=== PATIENT | female | born 1975 | race Two or more races ===

== ENCOUNTER → 2017-02-19 | Outpatient (CLI) | payer MEDICAID ==
[2017-02-19 09:00] LABS: Basophils # (auto) 0 uL; Basophils % (auto) 0.2 % (0.0-2.0); Eosinophils # (auto) 0 uL; Eosinophils % (auto) 0.3 % (0.0-7.0); Hematocrit 37.7 % (36.0-46.0); Hemoglobin 12.8 g/dL (12.2-16.2); Lymphocytes # (auto) 1.9 uL; Lymphocytes % (auto) 14.8 % (10.0-50.0); Mean Corpuscular Hemoglobin 29.5 pg (28.0-32.0); Mean Corpuscular Volume 86.8 fL (80.0-100.0); Mean Platelet Volume 10.9 fL (7.4-10.4); Monocytes # (auto) 0.6 uL; Monocytes % (auto) 4.8 % (0.0-12.0); Neutrophils # (auto) 10.1 uL; Neutrophils % (auto) 79.9 % (37.0-80.0); Platelet Count (auto) 206 10^3/uL (140-450); Red Cell Distribution Width 14.4 % (11.6-16.0); SUSPECT VIEW TRANSMISSION; White Blood Cell 12.6 10^3/uL (4.4-10.8)
== END | disposition home or self-care (01) ==
LOC: LAB 08:16
PROVIDERS: ATTEND Specialist
DX: O99.810 Abnormal glucose complicating pregnancy (principal); Z34.80 Encounter for supervision of other normal pregnancy, unspecified trimester
CPT/HCPCS: 36415; 82951; 83036; 85025

== ENCOUNTER → 2017-02-28 | Outpatient (CLI) | payer MEDICAID | END | disposition home or self-care (01) | LOC: LAB 07:18 | PROVIDERS: ATTEND Specialist | DX: Z34.80 Encounter for supervision of other normal pregnancy, unspecified trimester (principal); R73.09 Other abnormal glucose | CPT/HCPCS: 82951; 82952 ==

== ENCOUNTER → 2017-04-16 | Outpatient (CLI) | payer MEDICAID ==
[2017-04-16 10:13] LABS: Basophils # (auto) 0 uL; Basophils % (auto) 0.2 % (0.0-2.0); CONDITION Y; Eosinophils # (auto) 0 uL; Eosinophils % (auto) 0.3 % (0.0-7.0); Hematocrit 37.2 % (36.0-46.0); Hemoglobin 12.6 g/dL (12.2-16.2); Lymphocytes # (auto) 1.6 uL; Lymphocytes % (auto) 14.7 % (10.0-50.0); Mean Corpuscular Hemoglobin 29.2 pg (28.0-32.0); Mean Corpuscular Hgb Conc. 33.8 g/dL (32.0-36.0); Mean Corpuscular Volume 86.5 fL (80.0-100.0); Mean Platelet Volume 11.7 fL (7.4-10.4); Monocytes # (auto) 0.5 uL; Monocytes % (auto) 4.8 % (0.0-12.0); Neutrophils # (auto) 8.6 uL; Platelet Count (auto) 172 10^3/uL (140-450); Red Cell Distribution Width 14.2 % (11.6-16.0); White Blood Cell 10.7 10^3/uL (4.4-10.8)
== END | disposition home or self-care (01) ==
LOC: LAB 09:43
PROVIDERS: ATTEND Specialist
DX: Z34.80 Encounter for supervision of other normal pregnancy, unspecified trimester (principal); Z11.3 Encounter for screening for infections with a predominantly sexual mode of transmission; N76.0 Acute vaginitis
CPT/HCPCS: 36415; 85025; 86592

== ENCOUNTER → 2017-05-08 | Outpatient (CLI) | payer MEDICAID ==
[2017-05-08 11:44] LABS: Basophils # (auto) 0 uL; Basophils % (auto) 0.2 % (0.0-2.0); CONDITION Y; Eosinophils # (auto) 0 uL; Eosinophils % (auto) 0.3 % (0.0-7.0); Hematocrit 35.9 % (36.0-46.0); Hemoglobin 12.1 g/dL (12.2-16.2); Lymphocytes # (auto) 1.5 uL; Lymphocytes % (auto) 12.3 % (10.0-50.0); Mean Corpuscular Hemoglobin 29.3 pg (28.0-32.0); Mean Corpuscular Hgb Conc. 33.6 g/dL (32.0-36.0); Mean Corpuscular Volume 87.3 fL (80.0-100.0); Mean Platelet Volume 11.8 fL (7.4-10.4); Monocytes # (auto) 0.7 uL; Monocytes % (auto) 5.5 % (0.0-12.0); Neutrophils # (auto) 9.8 uL; Neutrophils % (auto) 81.7 % (37.0-80.0); Platelet Count (auto) 172 10^3/uL (140-450); Red Cell Distribution Width 14.7 % (11.6-16.0)
[2017-05-08 12:45] LABS: Albumin 2.7 g/dL (3.4-5.0); BUN/Creatinine Ratio 11.9; Bilirubin, Total 0.2 mg/dL (0.2-1.0); Calcium 8.7 mg/dL (8.5-10.1); Total Protein 6.7 g/dL (6.4-8.2); Uric Acid 4.7 mg/dL (2.6-6.0)
== END | disposition home or self-care (01) ==
LOC: LAB 11:28
PROVIDERS: ATTEND Specialist
DX: Z34.80 Encounter for supervision of other normal pregnancy, unspecified trimester (principal)
CPT/HCPCS: 36415; 80053; 84550; 85025